=== PATIENT | female | born 1990 | race Asian ===

== ENCOUNTER 2020-01-11 10:08 | Emergency (ER) | payer OTHER ==
[~2020-01-11] VITALS: Ht 157.5 cm; Wt 88.5 kg
[2020-01-11 10:19] VITALS: TEMP 98.1
[2020-01-11 11:34] VITALS: BP 155/92
== END 2020-01-11 11:34 | disposition home or self-care (01) ==
LOC: ED 10:08
DX: J02.0 Streptococcal pharyngitis (principal)
CPT/HCPCS: 87502; 87651; 99283

== ENCOUNTER 2022-12-06 12:23 | Outpatient (CLI) | payer OTHER ==
[2022-12-06 12:54] LABS: PLATELET COUNT 308 K/uL (152-353)
== END 2022-12-06 19:25 | disposition home or self-care (01) ==
LOC: LABW 12:23
PROVIDERS: ATTEND Nurse Practitioner Family
DX: L70.0 Acne vulgaris (principal); Z32.02 Encounter for pregnancy test, result negative; Z79.899 Other long term (current) drug therapy
CPT/HCPCS: 36415; 80076; 82465; 84478; 85027

== ENCOUNTER 2023-02-23 15:39 | Outpatient (CLI) | payer OTHER ==
[2023-02-23 16:03] LABS: PLATELET COUNT 291 K/uL (152-353)
== END 2023-02-23 19:05 | disposition home or self-care (01) ==
LOC: LABW 15:39
PROVIDERS: ATTEND Nurse Practitioner Family
DX: L70.0 Acne vulgaris (principal); Z79.899 Other long term (current) drug therapy
CPT/HCPCS: 36415; 80076; 82465; 84478; 85027

== ENCOUNTER 2023-04-30 11:08 | Outpatient (CLI) | payer OTHER ==
[2023-04-30 11:53] LABS: PLATELET COUNT 338 K/uL (152-353)
== END 2023-04-30 19:18 | disposition home or self-care (01) ==
LOC: LABW 11:08
PROVIDERS: ATTEND Nurse Practitioner Family
DX: L70.0 Acne vulgaris (principal); Z32.02 Encounter for pregnancy test, result negative; Z79.899 Other long term (current) drug therapy
CPT/HCPCS: 36415; 80076; 82465; 84478; 85027

== ENCOUNTER 2023-06-01 13:09 | Outpatient (CLI) | payer OTHER ==
[2023-06-01 13:33] LABS: PLATELET COUNT 337 K/uL (152-353)
== END 2023-06-01 19:59 | disposition home or self-care (01) ==
LOC: LABW 13:09
PROVIDERS: ATTEND Nurse Practitioner Family
DX: L70.0 Acne vulgaris (principal); Z32.02 Encounter for pregnancy test, result negative; Z79.899 Other long term (current) drug therapy
CPT/HCPCS: 36415; 80076; 82465; 84478; 85027